=== PATIENT | male | born 1960 | race Caucasian/White ===

== ENCOUNTER 2018-07-24 17:28 | Emergency (ER) | payer OTHER, SELFPAY ==
[2018-07-24 17:29] VITALS: BP 158/83; PULSE 91; RESP 22; TEMP 36.6; O2SAT 95; BMI 28.2
--- NOTE | 2018-07-24 17:41 | CT_ITS ---
STUDY: CT ABDOMEN AND PELVIS WITHOUT CONTRAST REASON FOR EXAM: Male, 57 years old. Left flank pain. RADIATION DOSAGE (If Supplied By Facility): CTDIvol = ( 11.86 ) mGy, DLP = ( 574.97 ) mGycm TECHNIQUE: Transaxial images were obtained from the dome of the diaphragm to the symphysis pubis without oral contrast, and without intravenous contrast. Sagittal and coronal images were reconstructed. Individualized dose optimization techniques were used for this CT. COMPARISON: CT abdomen and pelvis March 24, 2010 not available for comparison, but report for that study was reviewed. FINDINGS: 12 mm nodule with a dense central calcification consistent with a benign granuloma seen in the posterior periphery of the right lung base. There are also dependent changes in the posterior lung bases. The visualized portions of the heart are within normal limits. There is decreased attenuation of the liver consistent with steatosis. The portal vein diameter is 15 mm. Normal gallbladder and extrahepatic biliary system. Normal spleen. Normal pancreas. Normal bilateral adrenal glands. Normal right kidney. Normal left kidney. No hydronephrosis. Normal visualized stomach. Normal small intestine. There is a rare sigmoid colonic diverticulum. The appendix is suggested on series 601 images 65-66 and appears normal. There is moderate atherosclerotic calcification of the distal abdominal aorta and proximal iliac arteries, without a demonstrated aneurysm. Normal inferior vena cava. Normal retroperitoneum. Normal urinary bladder. Normal visualized prostate gland. There is a small left-sided inguinal hernia containing adipose tissue. There are multilevel degenerative changes of the visualized spine, including 6 mm posterior protrusion of the narrowed L5-S1 disc space into the spinal canal. CT/Abdomen/Pelvis without Cont IMPRESSION: 1. Small fat-containing left inguinal hernia, but no other clearly demonstrated source for the patient's complaints. 2. Hepatic steatosis. 3. No nephrolithiasis or hydronephrosis. 4. Rare sigmoid colon diverticulum without acute diverticulitis. The bowel is otherwise unremarkable without signs of obstruction. The appendix is normal. 5. Moderate aortoiliac atherosclerotic calcific plaquing. 6. Degenerative changes of the spine, including 6 mm posterior protrusion of the narrowed L5-S1 disc space. Electronically Signed: Jose Miguel Reno MD at 18:46 EST , Service support ,
[2018-07-24 17:59] LABS: Absolute Lymphocyte Count 1.38 X10^3/ul (0.83-4.51); Absolute Neutrophil Count 5.2 X10^3/uL (2.0-7.7); Basophil# 0.02 X10^3/uL; Basophil% 0.3 % (0-1); Eosinophils% 1.4 % (0-5); Hematocrit 52.9 % (40-54); Hemoglobin 17.8 g/dl (13.0-16.5); Lymphocyte # 1.38 X10^3/ul (4.0); Lymphocyte % 19.4 % (19-41); Mean Corp Hgb Conc 33.6 g/gl (32-36); Mean Corpuscular Hgb 30.3 pg (27.0-32.0); Mean Corpuscular Volume 90.1 fL (80-94); Mean Platelet Vol. 9.3 fl (6.2-12.0); Monocyte# 0.41 X10^3/uL; Monocyte% 5.8 % (0-10); Neutrophil # 5.21 X10^3/uL (2.7-7.7); Platelet Count 195 K/mm3 (150-450); RBC Distribution Width CV 13.5 % (11.6-14.6); RBC Distribution Width SD 44.8 fl (35.1-43.9); Red Blood Count 5.87 M/mm3 (4.6-6.2); White Blood Count 7.1 K/mm3 (4.4-11.0)
[2018-07-24 18:00] LABS: POSITIVE COUNT NO; POSITIVE DIFFERENTIAL NO; POSITIVE MORPHOLOGY NO
[2018-07-24] MEDS: Ketorolac 30 MG/ML Syringe IV (18:05)
[2018-07-24] MEDS: Ondansetron 4 MG/2 ML Vial IV (18:05)
[2018-07-24] MEDS: Morphine 4 MG/ML Syringe IV (18:06)
--- NOTE | 2018-07-24 18:09 | ED.DCSUM_ITS ---
- ER Visit Summary Date of Service: 07/24/18 Chief Complaint: Left flank pain History of Present Illness: The patient is a 57 M with left low back pain over the past couple of days. Patient states he did have a slight twinge at work after twisting and then shoveled snow over the weekend. Pain was significantly worse today. He had difficulty getting in and out of the car. Pain does not radiate to his leg. He did have some increased pain with a bowel movement yesterday. He is also had decreased urine output yesterday. He denies any dark discoloration to his urine or pain with urination. Physical Examination: Vital signs significant for blood pressure 158/83, otherwise unremarkable. Patient sitting upright in bed no acute distress. Head neck examination normal. Heart is regular rate and rhythm. Lung sounds are clear. Abdomen is soft and nontender. Hypoactive bowel sounds noted throughout. Back examination reveals diffuse tenderness throughout the left lumbar paraspinals. No tenderness on the right or midline. Lower external examination reveals good strength and sensation throughout. Test Results: CBC was normal white count with hemoglobin concentrated at 17.8. Chemistry studies significant only for glucose of 121. Urinalysis normal. CT flank shows a small fat-containing left inguinal hernia. No renal stones are noted. There is rare sigmoid diverticulum noted without acute diverticulitis. Degenerative spine changes are noted. Emergency Department Course and Treatment: Patient is received morphine, Zofran, Toradol, and IV fluids. After return from CT he did get 0.5 mg of Dilaudid. On repeat evaluation patient is resting comfortably. Test results are discussed with him. I believe this is all musculoskeletal in nature. He will be treated with naproxen, Flexeril, and a few [place] for breakthrough pain. Treatment Plan: [] Disposition: Discharge Impression: Musculoskeletal back pain This note was generated with [employer] dictation software. It may contain incorrect words, spelling, and punctuation that were not noted in review of the chart prior to signing ED Disposition - Plan for ED Patient: Chief Complaint: Flank Pain Referrals: Care Physician,No Primary [Primary Care Provider] -
[2018-07-24 18:16] VITALS: BP 139/94; PULSE 83; RESP 16; O2SAT 98
[2018-07-24 18:25] LABS: Anion Gap 8 (5-15); BUN 17 mg/dL (7-18); BUN/Creat Ratio 13.9 RATIO (10-20); Calcium,Total 8.8 mg/dL (8.5-10.1); Chloride 107 mmol/L (98-107); Creatinine, Serum 1.22 mg/dL (0.70-1.30); EST Glomerular Filtration Rate 65 mL/min (>60); Est Glom Filt Rate - Afr Amer 79 mL/min (>60); Estimated Creatinine Clearance 61.01 ml/min; Glucose 121 mg/dL (74-106); Potassium 3.8 mmol/L (3.5-5.1); Sodium Level 141 mmol/L (136-145)
[2018-07-24] MEDS: HYDROmorphone 0.5 MG/0.5 ML SYRINGE IV (19:04)
[2018-07-24 19:59] LABS: Bacteria 0 SEEN /hpf (None Seen); Squamous Epithelial Cells - UA 0 SEEN /hpf (0-5); White Blood Cells 0 SEEN /hpf (0-5)
[2018-07-24 20:00] LABS: Color, Urine Yellow (Yellow); Glucose, Dipstick Normal (Normal); Ketone-Dipstick Negative (Negative); Leukocyte Esterase-Dipstick Negative /ul (Negative); Nitrite-Dipstick Negative (Negative); Occult Blood-Urine Negative /ul (Negative); Protein-Dipstick Negative (Negative); Specific Gravity, Urine 1.015 (1.002-1.030); Urine Bilirubin Dipstick Negative (Negative); Urine Clarity Clear (Clear); Urine Urobilinogen Normal (Normal); Urine pH 6.5 (5.0 - 8.0)
[2018-07-24 20:29] LABS: Mucous, Urine RARE /hpf (<or=2+); Red Blood Cells-Urine 0-5 SEEN /hpf (0-5)
[2018-07-24 20:36] VITALS: BP 152/102; PULSE 78; RESP 16; O2SAT 97
[2018-07-24] MEDS: 0.9% Normal Saline 1,000 ML 150 ML IV (20:40)
--- NOTE | 2018-07-24 20:49 | ED.DEP ---
ED Disposition - Plan for ED Patient: Disposition: Home or Assisted Living Chief Complaint: Flank Pain Instructions: ED Neck Back Pain General Prescriptions: Hydrocodone Bitart/Apap 5-325 [Cooks 5MG-325MG] 1 tablet PO Q6H PRN PRN 3 Days #10 tablet PRN Reason: Pain Naproxen [Naprosyn] 500 mg PO BID PRN PRN #20 tablet PRN Reason: Pain Cyclobenzaprine [Flexeril] 10 mg PO TID PRN #20 tablet PRN Reason: Muscle Spasm Referrals: Fast,Amanda, DO [NON-STAFF] - As Needed
[2018-07-24 20:56] VITALS: BP 136/90; PULSE 78; RESP 16; O2SAT 98
== END 2018-07-24 20:57 | disposition home or self-care (01) ==
PROVIDERS: Emergency Provider Emergency Medicine
DX: M54.5 Low back pain (principal); K40.90 Unilateral inguinal hernia, without obstruction or gangrene, not specified as recurrent; K57.30 Diverticulosis of large intestine without perforation or abscess without bleeding
CPT/HCPCS: 74176; 80048; 81001; 85025; 96361; 96374; 96375; 99283; J7030; J7040; A4216; J2405